=== PATIENT | female | born 1935 | race Hispanic/Latino ===

== ENCOUNTER 2017-10-24 18:19 | Observation (INO) | payer OTHER, MEDICARE ==
[~2017-10-24] VITALS: Ht 149.9 cm; Wt 75.9 kg
[~2017-10-24 18:19] MED LIST: AMLO5TAB2 PO; BIMA12.5OS OU; DOCU100T PO; DONE5TAB33 PO; FLUO-126 PO; LISI40TA4 PO; MELO-106 PO; MEMA5TAB PO; SIMV20TA6 PO; VIT-10 PO
[2017-10-24] MEDS ORDERED: SODIUM CHLORIDE 0.9% 500ML 500 ML IV ONE (18:50)
[2017-10-24 19:10] LABS: INR 1.01 (0.85-1.15); PARTIAL THROMBOPLASTIN TIME 26.6 SEC (26.3-35.5); PROTHROMBIN TIME 10.6 SEC (9.6-11.6)
[2017-10-24 19:22] LABS: CREATININE 0.8 mg/dL (0.5-1.5); POTASSIUM 4.1 mmol/L (3.5-5.1)
[2017-10-24 19:35] LABS: ALBUMIN 4.4 g/dL (3.5-5.0); BILIRUBIN,TOTAL 0.4 mg/dL (0.2-1.0); CREATINE KINASE MB 0.7 ng/mL (0.5-3.6)
[2017-10-24] MEDS ORDERED: IOPAMIDOL-370 75 ML VIAL IV ONE (19:39)
[2017-10-24 19:43] LABS: BASOPHILS % (AUTO) 0.3 % (0.0-5.0); EOSINOPHILS % (AUTO) 1.4 % (0.0-8.0); HEMATOCRIT 38.6 % (36-48); LYMPHOCYTES % (AUTO) 13.5 % (21.0-51.0); MEAN CORPUSCULAR HEMOGLOBIN 30.8 pg (27.0-33.0); MEAN CORPUSCULAR HGB CONC 33.6 g/dL (32.0-36.0); MEAN CORPUSCULAR VOLUME 91.6 fL (79-99); MONOCYTES % (AUTO) 4.7 % (3.0-13.0); NEUTROPHILS % (AUTO) 80.1 % (40.0-77.0); PLATELET COUNT (AUTO) 287 K/uL (130-400); RED BLOOD CELL COUNT(AUTO) 4.21 MIL/uL (4.00-5.50); RED CELL DISTRIBUTION WIDTH 14.6 % (11.0-15.5); WHITE BLOOD COUNT (AUTO) 13.6 K/uL (4.8-10.8)
[2017-10-24] MEDS ORDERED: KETOROLAC TROMETHAMINE 15MG/ML ONE (19:45)
[2017-10-24 23:12] LABS: APPEARANCE,URINE Cloudy (CLEAR); BILIRUBIN,URINE Negative (NEGATIVE); COLOR,URINE Yellow (YELLOW); GLUCOSE, URINE (UA) Negative (NEGATIVE); KETONES,URINE Negative (NEGATIVE); LEUKOCYTE ESTERASE ,URINE Large (NEGATIVE); NITRATE,URINE Positive (NEGATIVE); OCCULT BLOOD,URINE Trace (NEGATIVE); PROTEIN,URINE Negative (NEGATIVE); UROBILINOGEN,URINE 0.2 mg/dL (0.2-1.0)
[2017-10-24 23:20] LABS: BACTERIA,URINE Many /HPF (None Seen); MUCUS,URINE Moderate LPF (None Seen); RENAL EPITHELIAL CELLS,URINE Moderate /LPF (None Seen); SQUAMOUS EPITHELIAL CELL,UR Few /LPF (0-2); TRANSITIONAL EPI CELLS,URINE Few /LPF (None Seen)
[2017-10-24] MEDS ORDERED: ONDANSETRON HCL 4 MG/2 ML VIAL IVP PRN (23:45)
[2017-10-24] MEDS ORDERED: MEPERIDINE-PF 25 MG/ML SYG IV PRN (23:45)
[2017-10-24] MEDS ORDERED: SODIUM CHLORIDE 0.9% 1000ML 1,000 ML IV SCH (23:45)
[2017-10-25] MEDS ORDERED: METRONIDAZOLE 500 MG TABLET ONE (01:55)
[2017-10-25] MEDS ORDERED: CEFTRIAXONE SODIUM 1 GM ONE (01:55)
[2017-10-25] MEDS ORDERED: ONDANSETRON HCL 4 MG/2 ML VIAL ONE ×2 (03:00→03:01)
[2017-10-25] MEDS ORDERED: SODIUM CHLORIDE 0.9% 1000ML 1,000 ML IV ONE (05:00)
[2017-10-25 06:20] LABS: BASOPHILS % (AUTO) 0.3 % (0.0-5.0); EOSINOPHILS % (AUTO) 0.9 % (0.0-8.0); LYMPHOCYTES % (AUTO) 9.3 % (21.0-51.0); MEAN CORPUSCULAR HEMOGLOBIN 30.1 pg (27.0-33.0); MEAN CORPUSCULAR HGB CONC 33.2 g/dL (32.0-36.0); MEAN CORPUSCULAR VOLUME 90.6 fL (79-99); MONOCYTES % (AUTO) 6.3 % (3.0-13.0); NEUTROPHILS % (AUTO) 83.2 % (40.0-77.0); PLATELET COUNT (AUTO) 258 K/uL (130-400); RED BLOOD CELL COUNT(AUTO) 3.87 MIL/uL (4.00-5.50); RED CELL DISTRIBUTION WIDTH 14.5 % (11.0-15.5); WHITE BLOOD COUNT (AUTO) 13.1 K/uL (4.8-10.8)
[2017-10-25 06:31] LABS: CREATININE 0.9 mg/dL (0.5-1.5); POTASSIUM 4.4 mmol/L (3.5-5.1)
[2017-10-25 06:37] LABS: ALBUMIN 3.3 g/dL (3.5-5.0); BILIRUBIN,TOTAL 0.6 mg/dL (0.2-1.0); TOTAL PROTEIN, SERUM 6.8 g/dL (6.0-8.3)
[2017-10-25] MEDS: FAMOTIDINE/PF 20 MG/2 ML VIAL IV SCH ×2 (09:00→22:54)
[2017-10-25 15:28] VITALS: BP 129/67
[2017-10-25] MEDS ORDERED: BIMA12.5OS OU (18:27)
[2017-10-25] MEDS ORDERED: DONE5TAB26 PO (18:27)
[2017-10-25] MEDS ORDERED: ATOR10 PO (18:27)
[2017-10-25] MEDS ORDERED: CYCL30DR OP (18:27)
[2017-10-25] MEDS ORDERED: MELO-106 PO (18:27)
[2017-10-25] MEDS ORDERED: FLUO20CA30 PO (18:27)
[2017-10-25] MEDS ORDERED: FOLI1TAB15 PO (18:27)
[2017-10-25] MEDS ORDERED: MEMA5TAB15 PO (18:27)
[2017-10-25] MEDS ORDERED: LISI40TA4 PO (18:27)
[2017-10-25] MEDS ORDERED: DOCU100C19 PO (18:27)
[2017-10-25] MEDS ORDERED: AMLO5TAB2 PO (18:27)
[2017-10-25 20:00] VITALS: BP 134/73
[2017-10-26] VITALS: BP 118/54
[2017-10-26 04:00] VITALS: BP 119/72
[2017-10-26 08:00] VITALS: BP 140/66
[2017-10-26] MEDS ORDERED: CEFTRIAXONE 1GM/D5W 50ML 50 ML IV SCH (08:45)
[2017-10-26] MEDS ORDERED: SODIUM CHLORIDE 0.9% 1000ML 1,000 ML IV SCH (08:45)
[2017-10-26] MEDS ORDERED: LACTULOSE 20 GM/30 ML UDCUP PO PRN (08:45)
[2017-10-26] MEDS ORDERED: SODIUM CHLORIDE 0.9% 1000ML 1,000 ML IV ONE (09:46)
[2017-10-26] MEDS: FAMOTIDINE/PF 20 MG/2 ML VIAL IV SCH (09:48)
[2017-10-26 10:56] VITALS: BP 118/63
[2017-10-26] MEDS ORDERED: CEFTRIAXONE SODIUM 1 GM IVP SCH (11:45)
== END 2017-10-26 18:15 | disposition home or self-care (01) ==
LOC: EDH 18:19 → EDHIP 22:10 → 3BH 10-25 14:48
PROVIDERS: ADMIT Family Medicine; ATTEND Family Medicine
DX: K80.20 Calculus of gallbladder without cholecystitis without obstruction (principal); K43.9 Ventral hernia without obstruction or gangrene; I10 Essential (primary) hypertension; E78.5 Hyperlipidemia, unspecified
CPT/HCPCS: 36415 ×2; 74177; 80053 ×2; 81001; 82550; 82553; 83605 ×3; 83690; 84484; 85025 ×2; 85610; 85730; 87040 ×2; 87088; 96361; 96374; 96375; 96376; 99285; A4218; G0378 ×44; J0696 ×2; J1885; J2405 ×2; J3490 ×2; J7030 ×2; J7040; Q9967